=== PATIENT | male | born 1970 | race Caucasian/White ===

== ENCOUNTER 2021-12-31 17:09 | Emergency (ER) | payer OTHER, SELFPAY ==
[2021-12-31] VITALS (10 sets, daily range): BP systolic 118–150; BP diastolic 64–86; PULSE 72–93; RESP 12–20; TEMP 37; O2SAT 97–99
--- NOTE | ~2021-12-31 | CT_ITS ---
EXAMINATION: CTA chest DATE: 12/31/2021 19:13 INDICATION: Chest pain radiating to the neck and back TECHNIQUE: Computed tomographic angiography (CTA) of the chest was performed without and with 100 mL Omnipaque-350 intravenous contrast. Volume-rendered 3D-reconstructions of the aorta and large arterie s were constructed by the technologist on a separate workstation. Automated exposure control and iter ative reconstruction technique were employed. The dose-length product was 819.20 mGy-cm. COMPARISON: None. FINDINGS: Mild dependent atelectasis in the bilateral lower lobes. No pneumonia, pulmonary edema, pleural effus ion or pneumothorax. Heart size is normal. No pericardial effusion. Median sternotomy wires and surgi estevan clips in the anterior mediastinum. Interval repair of the prior ascending thoracic aortic aneurys m which previously measured 5.3 cm at the level of the main pulmonary artery. Interval repair at this location with the aorta now measuring 3.8 cm in maximal diameter at this level. There is a persisten t fusiform aneurysm of ascending thoracic aorta cephalad to the level of the repair which measures up to 4.2 cm in maximal diameter and which tapers to normal caliber maximal diameter of 3.2 cm between the level of the takeoff of the innominate and left internal carotid arteries. Descending thoracic ao rta is normal in caliber. No aortic dissection. No pathologically enlarged thoracic lymphadenopathy. Visualized upper abdomen is unremarkable. Mild thoracic spondylosis with minimal anterior wedging of a few lower thoracic vertebral bodies. IMPRESSION: 1. Residual 4.2 cm ascending thoracic aortic aneurysm cephalad to the level of a prior aortic aneurys m repair. No dissection. 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 Residual 4.2 cm ascending thoracic aortic aneurysm cephalad to the level of a prior aortic aneurysm repair. No dissection.
--- NOTE | ~2021-12-31 | XR_ITS ---
EXAMINATION: XR chest 2V DATE: 12/31/2021 17:48 INDICATION: Chest pain TECHNIQUE: frontal and lateral views of the chest were obtained. COMPARISON: Chest radiograph dated 02/26/2016 FINDINGS: The lungs remain clear with no focal airspace opacities, pulmonary edema, pleural effusion or pneumot horax. The cardiomediastinal silhouette is normal. Median sternotomy wires and mediastinal surgical c lips are seen, likely from prior coronary artery bypass grafting. IMPRESSION: 1. No acute cardiopulmonary disease. 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
--- NOTE | 2021-12-31 17:13 | ECG_ITS ---
Measurements Intervals [place] Rate: 85 P: 68 [place]: 155 QRS: 56 QRSD: 93 T: 81 QT: 348 QTc: 415 Interpretive Statements SINUS RHYTHM BORDERLINE T WAVE ABNORMALITY- HIGH LATERAL LEADS BASELINE ARTIFACT- II, III, AVR, AVF, V1-V6 BORDERLINE ECG Electronically Signed On 12-31-2021 18:19:42 [employer] HAND by Kevin Cota D.O.
[2021-12-31 17:43] LABS: Basophils Percent Auto 0.5 % (0.2-1.2); Eosinophils Absolute Auto 0.1 K/mm3 (0-0.3); Eosinophils Percent Auto 1.3 % (0-4.4); Hemoglobin 14.7 g/dL (14.0-18.0); Immature Granulocyte Absolute 0.04 K/mm3 (0.00-0.031); Immature Granulocyte Percent A 0.6 % (0-0.5); Lymphocytes Absolute Auto 0.63 K/mm3 (0.9-3.2); Lymphocytes Percent Auto 10.2 % (18.3-44.2); Mean Corpuscular HGB Conc 33.4 g/dl (32-36); Mean Corpuscular Hemoglobin 31.5 pg (26-34); Mean Corpuscular Volume 94.4 fl (80-100); Mean Platelet Volume 9.3 fl (7.4-10.4); Monocytes Absolute Auto 0.4 K/mm3 (0.1-0.6); Neutrophils Absolute Auto 5.1 K/mm3 (1.3-6.7); Neutrophils Percent Auto 81.4 % (45.5-73.1); Platelet Count Result 170 k/mm3 (150-375); Red Blood Count 4.66 M/mm3 (4.6-6.20); Red Cell Distribution Width 12.5 % (11.5-14.5); White Blood Count 6.2 K/mm3 (4.5-10.0)
[2021-12-31 17:56] LABS: Alanine Aminotransferase 21 U/L (4-50); Albumin Level 4.5 g/dL (3.5-5.1); Alkaline Phosphatase 57 U/L (38-126); Anion Gap 6 mmol/L (8-16); Aspartate Amino Transferase 38 U/L (17-59); Bilirubin,Total 0.8 mg/dL (0.2-1.3); Blood Urea Nitrogen 18 mg/dL (9-20); Calcium 9.3 mg/dL (8.4-10.2); Carbon Dioxide 27 mmol/L (22-30); Chloride 104 mmol/L (98-107); Estimated CRCL calculation 141 ml/min; Estimated Glomerular Filt Rate > 60; Glucose 102 mg/dL (65-110); Lipase 65 U/L (23-300); Potassium 3.9 mmol/L (3.4-5.0); Prothrombin Time 12.8 Seconds (11.1-14.7); Sodium 137 mmol/L (137-145)
[2021-12-31 17:57] LABS: Partial Thromboplastin Time 29.6 SECONDS (22.3-36.8)
[2021-12-31 18:07] LABS: Troponin I < 0.012 ng/mL (0.000-0.034)
--- NOTE | 2021-12-31 18:29 | ED.CHESTPAIN ---
HPI - Chest Pain General Chief Complaint: Chest Pain Stated Complaint: chest pain Time Seen by Provider: 12/31/21 18:29 History of Present Illness HPI narrative: 52-year-old male presents the emergency room with acute onset of midsternal chest pain states the pain is a dull ache and radiates to the back no associated symptoms with the chest discomfort. Denies shortness of breath dizziness lightheadedness nausea vomiting. 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 Pain patient is 6 years status post ascending aortic dissection repair states today's pain is similar to what he was experiencing 6 years ago. Related Data Home Medications Medication Instructions Recorded Confirmed aspirin 81 mg PO DAILY 12/31/21 12/31/21 irbesartan 81 mg PO DAILY 12/31/21 12/31/21 Allergies Allergy/AdvReac Type Severity Reaction Status Date / Time No Known Allergies Allergy Verified 12/31/21 17:23 Review of Systems Review of Systems: CONSTITUTIONAL: Denies fever, chills, or sweats. EYES: Denies visual changes, redness, or discharge. ENT: Denies rhinorrhea, congestion, sore throat, or otalgia. CARDIOVASCULAR: Denies chest pain, palpitations, or edema. RESPIRATORY: Denies cough or dyspnea. GASTROINTESTINAL: Denies abdominal pain, nausea, vomiting, or diarrhea. GENITOURINARY: Denies dysuria or hematuria. SKIN: Denies rash or itching. MUSCULOSKELETAL: Denies back pain, joint pain, or myalgia. NEUROLOGIC: Denies headache, numbness, dizziness, or weakness. PSYCHIATRIC: Denies anxiety or depression. Exam Narrative: GENERAL: Well-appearing, well-nourished, and in no acute distress. HEAD: Normocephalic, atraumatic. EYES: PERRLA and EOMI. ENT: Nares clear, no rhinorrhea or epistaxis. Mucous membranes moist. Oropharynx without tonsillar hypertrophy exudate or other lesions. Bilateral TMs pearly calderon nonbulging NECK: Supple. No adenopathy or masses. No carotid bruits or JVD CHEST: Clear to auscultation. No respiratory distress. No wheezes rales or rhonchi HEART: Regular rate and rhythm. No murmur heard. Normal peripheral pulses. ABDOMEN: Soft, nontender, nondistended, normal active bowel sounds. EXTREMITIES: Normal range of motion. No edema. SKIN: Warm, dry, no rash. NEURO: No focal deficits. Alert and oriented x3. PSYCH: Normal mood and affect. Course Course Emergency Course: CTA chest is negative no new concerns for dissecting AAA. CBC CMP initial and repeat troponins were both negative chest x-ray showed no acute findings. Heart score is currently 2. 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 Patient given explicit instructions as to when to return to the emergency room including worsening or changing pain. Vital Signs Vital signs: Vital Signs Temperature 37.0 C 12/31/21 17:20 Pulse Rate 93 12/31/21 17:20 Respiratory Rate 17 12/31/21 17:20 Blood Pressure 150/79 H 12/31/21 17:20 Pulse Oximetry 99 12/31/21 17:20 Temperature 37.0 C 12/31/21 17:20 Pulse Rate 77 12/31/21 20:11 Respiratory Rate 18 12/31/21 20:11 Blood Pressure 123/64 12/31/21 20:11 Pulse Oximetry 98 12/31/21 20:11 MDM - Chest Pain Lab Data Result diagrams: 12/31/21 17:37 12/31/21 17:37 Labs: Lab Results 12/31/21 12/31/21 12/31/21 Range/Units 17:37 17:37 17:37 WBC 6.2 (4.5-10.0) K/mm3 RBC 4.66 (4.6-6.20) M/mm3 Hgb 14.7 (14.0-18.0) g/dL Hct 44.0 (42.0-52.0) % MCV 94.4 (80-100) fl MCH 31.5 (26-34) pg MCHC 33.4 (32-36) g/dl RDW 12.5 (11.5-14.5) % Plt Count 170 (150-375) k/mm3 MPV 9.3 (7.4-10.4) fl Immature Gran % (Auto) 0.6 H (0-0.5) % Neut % (Auto) 81.4 H (45.5-73.1) % Lymph % (Auto) 10.2 L (18.3-44.2) % [place] % (Auto) 6.0 (2.6-8.5) % Eos % (Auto) 1.3 (0-4.4) % Baso % (Auto) 0.5 (0.2-1.2) % Lymph # (Auto) 0.63 L (0.9-3.2) K/mm3 [place] # (Auto) 0.4 (0
[2021-12-31 20:38] LABS: D Dimer 0.31 ug/mL (<0.48)
[2021-12-31 21:39] LABS: Troponin I < 0.012 ng/mL (0.000-0.034)
== END 2021-12-31 21:38 | disposition home or self-care (01) ==
PROVIDERS: Emergency Medicine; Emergency Provider Nurse Practitioner Family
DX: M94.0 Chondrocostal junction syndrome [Tietze] (principal)
CPT/HCPCS: 36415; 71046; 71275; 80053; 83690; 84484; 85025; 85380; 85610; 85730; 93005; 99284; Q9967

== ENCOUNTER 2023-09-02 14:44 | Outpatient (CLI) | payer OTHER, SELFPAY ==
--- NOTE | ~2023-09-02 | CT_ITS ---
CT Scan of the Chest without Contrast: Clinical Indication: Aortic aneurysm Technique: Contiguous sections were acquired throughout the chest without intravenous contrast. Dose reduction technique was used on this scan by utilizing automated exposure control and iterative recon struction technique. The dose-length product (DLP) was 504.17 mGy-cm. COMPARISON: 12/31/2021 Findings: There is no evidence of any significant mediastinal, hilar or axillary lymphadenopathy. There is been prior repair at the ascending aorta, descending aorta now measuring up to 4.2 cm in maximum diameter .. There is no evidence of pleural or pericardial effusion. The lungs are clear. No pulmonary nodules or infiltrates are noted. Images through the upper abdomen reveal no abnormalities. Impression: Prior ascending aortic repair. Ascending aorta currently measures 4.2 cm in maximum diameter. Reviewed, dictated and finalized at [facility]. Impression: Prior ascending aortic repair. Ascending aorta currently measures 4.2 cm in max imum diameter.
== END 2023-09-02 14:45 | disposition home or self-care (01) ==
PROVIDERS: PCP Hospitalist; Visit Provider Internal Medicine Cardiovascular Disease
DX: I71.21 Aneurysm of the ascending aorta, without rupture (principal); Z98.890 Other specified postprocedural states; Z86.79 Personal history of other diseases of the circulatory system
CPT/HCPCS: 71250

== ENCOUNTER 2025-03-19 08:09 | Outpatient (CLI) | payer OTHER, SELFPAY ==
--- NOTE | ~2025-03-19 | CT_ITS ---
CT Scan of the Chest without Contrast: Clinical Indication: Aneurysm of descending thoracic aorta Technique: Contiguous sections were acquired throughout the chest without intravenous contrast. Dose reduction technique was used on this scan by utilizing automated exposure control and iterative recon struction technique. The dose-length product (DLP) was 604.23 mGy-cm. COMPARISON: 09/02/2023 Findings: There is no evidence of any significant mediastinal, hilar or axillary lymphadenopathy. Evidence of p rior ascending aortic aneurysm repair, with stable appearance of the ascending aorta as compared to p rior exam.. There is no evidence of pleural or pericardial effusion. The lungs are clear, aside from calcified granuloma. Images through the upper abdomen reveal no abnormalities. Impression: Stable ascending aortic aneurysm, status post repair. Reviewed, dictated and finalized at location . Impression: Stable ascending aortic aneurysm, status post repair.
== END 2025-03-19 08:10 | disposition home or self-care (01) ==
LOC: MICIMG 08:10
PROVIDERS: PCP Hospitalist; Visit Provider Internal Medicine Cardiovascular Disease
DX: I71.23 Aneurysm of the descending thoracic aorta, without rupture (principal)
CPT/HCPCS: 71250